=== PATIENT | male | born 1960 | race Caucasian/White ===

== ENCOUNTER 2016-06-04 15:00 | Emergency (ER) | payer OTHER ==
[~2016-06-04 15:00] MED LIST: ASAB PO; CELEXA40 MG PO; COREG3 PO; DIABETA5 PO; ESKALITH PO; FLOMAX4 PO; SLO-NIACIN500 MG PO; TEARS NATURA OPH; VOLT50 PO; WELL100 PO; ZOCOR40 PO
== END 2016-06-04 16:48 | disposition home or self-care (01) ==
LOC: ER 15:00
DX: S29.012A Strain of muscle and tendon of back wall of thorax, initial encounter (principal); I10 Essential (primary) hypertension; I25.2 Old myocardial infarction; Z95.1 Presence of aortocoronary bypass graft; Z87.891 Personal history of nicotine dependence; Z88.5 Allergy status to narcotic agent; Z79.82 Long term (current) use of aspirin; X58.XXXA Exposure to other specified factors, initial encounter
CPT/HCPCS: 72072; 72100; 96372; 99283; A9270-GY; J2800